=== PATIENT | female | born 1980 | race Caucasian/White ===

== ENCOUNTER 2016-10-14 14:31 | Emergency (ER) | payer BC, OTHER ==
--- NOTE | 2016-10-14 15:02 | ERNOTE ---
Abdominal HPI - Narrative Date of Service: 10/14/16 - General Chief Complaint: Abdominal Pain Time Seen by Provider: 10/14/16 14:59 Source: patient, RN notes reviewed Exam Limitations: no limitations - Immun/Allergies/Home Medications Immunizatons: IMMUNIZATION HX History of Influenza Vaccine Yes Allergies/Adverse Reactions: Allergies lactose Adverse Reaction (Intermediate, Verified 10/14/16 14:55) DIARRHEA, ABD PAIN Home Medications: HOME MEDICATIONS Lactobacillus Acidophilus [Probiotic] 1 each PO DAILY 04/15/13 [Last Taken Unknown] Multivitamins [Multivitamin Seferino] 1 cap PO DAILY 04/15/13 [Last Taken Unknown] - Pain Score Pain Score #1 Pain Score: 4 Abdominal Pain Onset Location: RUQ Pain Radiation: flank - History of Present Illness Narrative: Mallory is a 36-year-old female ambulatory to the emergency department for right upper quadrant abdominal pain that began last Thursday evening after she ate fried [employer] mushrooms. She has continued to have intermittent pain, but today it is more constant and is worse. She also reports nausea and vomiting. She has not vomited today. She has had diarrhea a couple of times since the onset of symptoms but did have a normal bowel movement yesterday. She reports feeling bloated and belching a lot. Eating makes the symptoms worse. She has not had anything to eat today, but this has not helped the pain. She underwent an EGD and colonoscopy approximately 4 years ago for upper abdominal pain. She was found to have an H. pylori infection at that time. This was treated and resolved. She has had 2 similar bouts of symptoms with this since that time. The most recent of these was 2 months ago. She was treated with medications in her symptoms improved. No testing was performed at that time, so the infection was not actually documented. She reports that her symptoms currently are different than these episodes. She has not taken anything for the symptoms. She denies the need for pain medication on initial exam. Date (Duration): 10/08/16 Timing: constant, getting worse Quality: moderate, aching Associated Symptoms: Present: fatigue, fever/chills, nausea, vomiting, loss of appetite. Absent: headache, back pain, chest pain, neck pain, diaphoresis, diarrhea-gross blood, diarrhea-mucous, heartburn Prior Abdominal Problems: Present: other Prior Treatment: Present: recently seen, treated by physician. Absent: recently hospitalized, currently on antibiotics Review of Systems - Review of Systems Constitutional: Present: recent illness, fever, chills, malaise EYE: Present: no symptoms reported ENT: Present: no symptoms reported Respiratory: Absent: shortness of breath, cough Cardiology: Absent: chest pain, palpitations, edema Gastrointestinal/Abdominal: Present: nausea, vomiting, abdominal pain, eating less, drinking less. Absent: diarrhea, constipation Genitourinary: Absent: dysuria, hematuria Musculoskeletal: Absent: back pain, muscle pain Skin: Absent: rash, lesions Neurological: Absent: headache, dizziness/light-headedness Endocrine: Present: no symptoms reported Hematologic/Lymphatic: Present: no symptoms reported Psych: Present: no symptoms reported - Patient's Past Medical History Patient History - Medical: Other - H.pylori infection Patient History - Cardiac/Respiratory: No pertinent hx Patient History - Cancer: No Hx of Cancer Patient History - Surgical Procedures: Colonoscopy, , EGD Patient History - Other: None LMP (females 10-50): 3 weeks - Social History Living Situations: home Psych History: No pertinent hx Smoking Status: Never smoker Alcohol Use: rarely Drug Use: none - Immunizations History of Influenza Vaccine: Yes Physical Exam - Physical Exam General Appearance: Present: wd/wn, alert, mild distress, obese, other - appears uncomfortable, appropriately dressed/groomed Respiratory: Present: no respiratory distress, normal breath sounds, no accessory muscle use, lungs clear Cardiovascular/Chest: Present: regular rate, rhythm, no murmur, normal peripheral pulses Gastrointestinal/Abdominal: Present: normal bowel sounds, soft, tenderness - RUQ , moderate, distended - obese. Absent: guarding, mass Back Exam: Present: normal range of motion, CVA tenderness (R). Absent: CVA tenderness (L) Extremity Exam: Present: normal inspection, no edema Neurological Exam: Present: alert, oriented, normal mood/affect, no motor/ sensory deficits Skin Exam: Present: normal color, warm/dry ED Progress - Results and Orders Patient's Lab Results:: I have reviewed the patient's lab results. - Vital Signs Patient's Vital Signs:: I have reviewed the patient's vital signs. Vital Signs: Vital Signs 10/14/16 14:50 Temperature 37.1 C Pulse Rate 85 Respiratory 12 Rate Blood Pressure 138/88 O2 Sat by Pulse 100 Oximetry - X-Ray X-Ray #1 X-Ray: abdomen Interpretation: Reviewed by me X-ray Comments: Mild/moderate fecal retention without evidence of obstruction - Progress/Reassessment Chief Complaint: Abdominal Pain Progress:: Unchanged Progress Note-Subjective: 10/14/16 15:55 Discussed lab results - CBC, CMP, amylase and lipase are unremarkable. Small amount of blood on UA but patient did just begin her menses when she gave the sample. Abd films ordered. 10/14/16 16:32 Discussed xray results - recommended milk of mag for stool retention, f/u as needed with persistent or worsening symptoms Departure - Departure Clinical Impression: Right upper quadrant abdominal pain Disposition: Home Follow Up Needed Condition: Stable Instructions: Abdominal Pain, Adult, [id number] Additional Instructions: Take milk of magnesia this evening as directed on bottle Follow up with your doctor or return for persistent or worsening symptoms
--- OUTSIDE RECORDS SUMMARY | 2016-10-14 15:13 | XMS REPORT | CCD ---
:1980 Author Name ION PRASAD Address [address] Unavailable [place], [place] [id number] Care Team Providers Name Role Phone BRYAN HORVATH Attending Physician Unavailable Vital Signs Unknown or Not Available. Allergies Unknown or Not Available. Procedures Procedure Code Procedure Type Date CT ABD/PEL WITHOUT [id number] SNOMED CT 03/29/2015 History of Immunizations Unknown or Not Available. Problems Unknown or Not Available. Results BASIC METABOLIC PANEL - Collect Date/Time: 03/29/2015 09:08 Test Name Code Test Result Test Units Test Ref Range GLUCOSE 100 mg/dL L=74 H=106 SODIUM 139 mmol/L L=136 H=145 POTASSIUM 4.1 mmol/L L=3.5 H=5.1 CHLORIDE 102 mmol/L L=98 H=107 CO2 27 mmol/L L=21 H=32 BUN 14.0 mg/dL L=7.0 H=18.0 CREATININE 0.8 mg/dL L=0.6 H=1.0 BUN/CREAT 17.5 L=7.6 H=21.2 CALCIUM 9.1 mg/dL L=8.6 H=10.1 ANION GAP 13.9 mmol/L L=7.0 H=16.0 AGE 34 YEARS GFR 86.76 ml/min CBC W/DIFF - Collect Date/Time: 03/29/2015 09:08 Test Name Code Test Result Test Units Test Ref Range WBC 6690-2 7.5 K/uL L=3.2 H=10.0 RBC 789-8 4.91 M/uL L=4.00 H=5.20 HEMOGLOBIN 718-7 12.3 g/dL L=12.1 H=15.6 HEMATOCRIT 37.2 % L=35.0 H=47.0 MCV 75.8 fL L=81.0 H=101 MCH 25.1 PG L=26.0 H=38.0 MCHC 33.1 G/DL L=31.0 H=37.0 RDW-SD 39.3 FL L=37.0 H=54.0 RDW-CV 14.5 % L=11.0 H=16.0 PLATELETS 320 K/UL L=140 H=380 MPV 9.1 FL L=9.0 H=13.0 %GRAN 65.6 % L=0.0 H=75.0 %LYMPH 27.5 % L=0.0 H=50.0 %MONO 5.7 % L=0.0 H=14.0 %EOS 0.7 % L=0.0 H=6.0 %BASO 0.5 % L=0.0 H=1.0 #GRAN 4.93 K/UL L=1.80 H=7.80 #LYMPH 2.07 K/UL L=0.30 H=4.00 #MONO 0.43 K/UL L=0.00 H=0.70 #EOS 0.05 K/UL L=0.00 H=0.40 #BASO 0.04 K/UL L=0.00 H=0.10 SLIDE REVIEWED? NOT INDICATED N/A MANUAL DIFF NOT INDICATED N/A Active Medications Unknown or Not Available. Medications Administered During Visit Unknown or Not Available. Encounters Encounter Diagnosis Diagnosis Code Start Date Calculus of kidney N200 03/29/2015 Social History Smoking Status Code Start Date End Date Never smoker [id number] Patient Decision Aids Unknown or Not Available. Discharge Instructions You were admitted to [facility] on 03/29/2015 with a principal diagnosis of Calculus of kidney. You were discharged from [facility] on 03/29/2015. Should you have any questions prior to discharge, please contact a member of your healthcare team. If you have left the hospital and have any questions, please contact your primary care physician. Chief Complaint and Reason For Visit Unknown or Not Available. Function Status Unknown or Not Available. Plan of Care Diagnostic Test Pending Plan of Care Pending Diagnostic Test CULTURE URINE, [INC: 634-6], 03/29/2015 Referral/Transition of Care Unknown or Not Available.
[2016-10-14 15:26] LABS: Hematocrit 39.3 % (37.0-47.0); Hemoglobin 12.7 gm/dL (12.5-16.0); Mean Cell Volume 75.4 fl (78-100); Mean Corpuscular Hemoglobin 24.4 pg (27-31); Mean Corpuscular Hgb Conc 32.3 g/dl (32-36); Mean Platelet Volume 8.7 fl (6.0-9.5); Neutrophil # 4.8 K/mm3 (1.3-6.0); Neutrophil % 64.4 % (42-75.0); Platelet Count 314 K/mm3 (150-450); Red Blood Count 5.21 M/mm3 (4.2-5.4); Red Cell Distribution Width 14.6 % (11.5-14.0); White Blood Count 7.4 K/mm3 (4.0-10.5)
[2016-10-14 15:35] LABS: Urine Bilirubin Negative (NEGATIVE); Urine Blood 50 /ul (NEGATIVE); Urine Ketone Negative (NEGATIVE); Urine Nitrite Negative (NEGATIVE); Urine Protein Negative (NEGATIVE); Urine Urobilinogen Normal (NORMAL)
[2016-10-14 15:39] LABS: Albumin * 3.7 gm/dl (3.4-5.0); Anion Gap 11.5 mmol/L (6.8-13.8); Bilirubin, Total 0.4 mg/dL (0.0-1.1); Ca. Corrected For Albumin 8.8 mg/dL (8.4-10.2); Calcium * 8.9 mg/dL (7.9-10.9); Carbon Dioxide 29.5 mmol/L (24-32.6)
[2016-10-14 15:47] LABS: Urine Appearance Clear; Urine Bacteria None Seen; Urine Color Yellow; Urine RBC TRACE /hpf (0-5); Urine WBC None Seen /hpf (0-5)
[2016-10-14 17:18] VITALS: BP 132/79
== END 2016-10-14 16:42 | disposition home or self-care (01) ==
LOC: ER 14:31
DX: R10.11 Right upper quadrant pain (principal)